=== PATIENT | female | born 1930 | race Caucasian/White ===

== ENCOUNTER 2020-08-17 19:22 | Emergency (ER) | payer OTHER ==
[~2020-08-17] VITALS: Ht 160 cm; Wt 48.5 kg
[~2020-08-17 19:22] MED LIST: DIOVAN160 M1; FOSAMAX70 MG; GLYBURID METFOR; ISOSORBIDE DINI30 MG; NEURONTIN300 MG PO; NORVASC5 MG
[2020-08-17] MEDS ORDERED: CARVEDILOL ER40 MG PO (19:43)
[2020-08-17] MEDS ORDERED: SIMVASTATIN5 MG PO (19:44)
[2020-08-17] MEDS ORDERED: PLAVIX75 MG PO (19:44)
[2020-08-17] MEDS ORDERED: METFORMIN HCL500 MG (19:45)
[2020-08-18] MEDS ORDERED: SURFAK240 M1 PO (00:22)
== END 2020-08-18 01:26 | disposition home or self-care (01) ==
LOC: ER 19:22
DX: K59.09 Other constipation (principal); K62.5 Hemorrhage of anus and rectum

== ENCOUNTER 2020-11-10 15:29 | Emergency (ER) | payer OTHER ==
[~2020-11-10] VITALS: Ht 157.5 cm; Wt 48.5 kg
[~2020-11-10 15:29] MED LIST changes: +CARVEDILOL ER40 MG PO; +METFORMIN HCL500 MG; +PLAVIX75 MG PO; +SIMVASTATIN5 MG PO; +SURFAK240 M1 PO
[2020-11-10] MEDS ORDERED: ECOTRIN81 MG (16:09)
[2020-11-10] MEDS ORDERED: LEVO-T25 MCG (16:09)
[2020-11-10] MEDS ORDERED: ATORVASTATIN CA20 MG (16:10)
== END 2020-11-10 21:42 | disposition home or self-care (01) ==
LOC: ER 15:29 → CPU-OBS 18:32 → ER 18:32
DX: R07.89 Other chest pain (principal); Z11.52 Encounter for screening for COVID-19